=== PATIENT | male | born 1960 | race Caucasian/White ===

== ENCOUNTER 2023-10-12 14:31 | Outpatient (REF) | payer MEDICARE, SELFPAY | END 2023-10-12 14:32 | disposition home or self-care (01) | LOC: HO.LNP 14:31 | PROVIDERS: Visit Provider Neurological Surgery | DX: Z13.89 Encounter for screening for other disorder (principal) ==

== ENCOUNTER 2023-11-09 13:15 | Outpatient (AMB) | payer MEDICARE, SELFPAY ==
--- NOTE | 2023-11-09 13:24 | A.OFFVIS_ITS ---
Intake Intake Visit Reasons: S1 neuropathy Documentation Billing Clerk Required: No Assessment & Plan Assessment & Plan (1) Spondylolisthesis, lumbar region: Code(s): M43.16 - Spondylolisthesis, lumbar region Plan Dear colleague, On 11/09/2023, I saw Fer Garcia with a chief complaint of left big toe numbness I know Dr. Garcia from previous practice at [facility]. I diagnosed him wi th a lumbar spondylolisthesis L4-5. He continues to suffer from chronic low back pain that is severe but manageable. Recently he developed numbness of his left big toe. He had an episode like that many years ago that was treated with injection. He denies pain or weakness. I reviewed his latest MRI of the lumbar spine that again shows a grade 2 L4-5 spondylolisthesis with hyperintensity of the facet joints as a sign of instability and moderate to severe L4-5 spinal stenosis. There is also a central disc bulge L5-S1 that may touching the S1 nerve root. The back pain in combination with numbness of his left big toe points towards the L4-5 region with compromise of the L5 nerve root. I advised him to return to my office if he wants to undergo a lumbar fusion L4-5 to address the back pa in as well as a nerve compression. His social situation does not allow surgical intervention at this time. Obviously, he will also return to my office any progressive neurological deficits occur, which is unlikely. I spent 30 minutes in this consult to review imaging and discussing plan of care. Andrea Donovan MD, PhD [facility] Trained Neurosurgeon Director, [facility] Coding Level of Care Code Est Pt Level 4 (21376) Diagnoses Spondylolisthesis, lumbar region M43.16
== END 2023-11-09 13:58 | disposition home or self-care (01) ==
PROVIDERS: PCP Family Medicine; Visit Provider Neurological Surgery
DX: M43.16 Spondylolisthesis, lumbar region (principal)
CPT/HCPCS: 99214

== ENCOUNTER → 2023-11-09 13:15 | Outpatient (BNVA) | payer MEDICARE, SELFPAY | PROVIDERS: PCP Family Medicine; Visit Provider Neurological Surgery | DX: M43.16 Spondylolisthesis, lumbar region (principal) | CPT/HCPCS: 99212 ==